=== PATIENT | female | born 1995 | race Caucasian/White ===

== ENCOUNTER 2020-06-09 13:15 | Emergency (ER) | payer OTHER ==
[~2020-06-09] VITALS: Ht 165.1 cm; Wt 79.4 kg
[2020-06-09 14:25] LABS: CLARITY,URINE CLEAR (CLEAR); COLOR,URINE YELLOW (YELLOW); KETONES,URINE NEGATIVE (NEGATIVE); LEUKOCYTE ESTERASE ,URINE SMALL (NEGATIVE); NITRITE,URINE NEGATIVE (NEGATIVE); PROTEIN,URINE DIPSTICK NEGATIVE (NEGATIVE)
[2020-06-09 14:26] LABS: URINE UROBILINOGEN 0.2 mg/dL (0.2 - 1)
[2020-06-09 14:49] LABS: BACTERIA,URINE FEW /HPF; EPITHELIAL CELLS,URINE FEW /LPF
[2020-06-09] MEDS ORDERED: AZITHROMYCIN 250 MG TAB PO STA (15:05)
[2020-06-09] MEDS ORDERED: CEFTRIAXONE SOD 1 GM VIAL IM ONE (15:15)
[2020-06-09] MEDS ORDERED: HYDROCODONE/APAP 5MG-325MG TAB PO ONE (15:15)
[2020-06-09] MEDS ORDERED: TYLENOL # 31 EA PO (15:26)
[2020-06-09] MEDS ORDERED: DOXYCYCLINE HY100 M3 PO (15:26)
[2020-06-09 15:34] VITALS: BP 153/65
== END 2020-06-09 15:39 | disposition home or self-care (01) ==
LOC: ER 13:26
DX: N73.9 Female pelvic inflammatory disease, unspecified (principal); R10.2 Pelvic and perineal pain
CPT/HCPCS: 81001; 81025; 87491; 87591; 99284; J0696